=== PATIENT | female | born 1980 | race Caucasian/White ===

== ENCOUNTER → 2025-03-14 | Outpatient (CLI) | payer MEDICAID, SELFPAY ==
[2025-03-13 12:25] LABS: HCG Qualitative,Urine Negative
--- NOTE | 2025-03-14 09:30 | XR_ITS ---
Examination: CT abdomen, without intravenous contrast. CT pelvis, without intravenous contrast. CT abdomen, with intravenous contrast. CT pelvis, with intravenous contrast. 2-D sagittal coronal reconstructions. Date and time of exam:March 14, 2025 0939 hours, comparison December 21, 2009 INDICATIONS: History fallopian tube abscess generalized abdominal pain 4 months CTDI: vol (mGy) 19.2 DLP: (mGycm) 727 Technique: Multiple 3.0 axial images of the abdomen and pelvis without intravenous contrast, 3.0 mm slice thickness. Multiple 3.0 postcontrast images abdomen and pelvis also obtained, post intravenous injection 60 cc [id number] 2-D sagittal and coronal reconstructions. Low dose protocols were performed. One or more of the following dose reduction techniques were used; automated exposure control, adjustment of the mA and/or KV according to patient size, use of iterative reconstruction technique. Findings: No focal liver or splenic lesions excepting 5 mm liver cyst No gallstones No pancreatic mass No renal or ureteral calculi, no hydronephrosis Aorta normal size No pericecal inflammatory change Free fluid in the pelvis, anteverted uterus Partially cystic mass in the right adnexal region at least 4.4 cm Cystic mass in the anterior right pelvis 27 mm Intact osseous structures IMPRESSION: Moderate free fluid in the pelvis Partially cystic right adnexal region mass at least 4.4 cm 27 mm cystic mass in the anterior pelvis Recommend transabdominal transvaginal pelvic sonography follow-up
== END | disposition home or self-care (01) ==
PROVIDERS: Referring Provider Student in an Organized Health Care Education/Training Program; Visit Provider Student in an Organized Health Care Education/Training Program
DX: R19.09 Other intra-abdominal and pelvic swelling, mass and lump (principal); Z32.00 Encounter for pregnancy test, result unknown
CPT/HCPCS: 74178; 81025; A4649; Q9967

== ENCOUNTER 2025-06-16 08:05 | Outpatient (AMB) | payer MEDICAID, SELFPAY ==
--- NOTE | 2025-06-16 08:27 | AMB.GYNCLNOT ---
Vital Signs 06/16/25 08:50 Height 1.65 m Height Method Stated Weight 60.328 kg Weight Measurement Method Standing Scale BMI 22.1 BP 116/72 Blood Pressure Source Automatic Cuff Blood Pressure Location Left Upper Arm Position Sitting Respiration 14 Pulse 75 Pulse Source Monitor Temp 98.5 F Temp Source Oral Pulse Oximetry (%) 98 Oxygen Delivery Method Room Air Allergies/Home Meds Allergies & Medications Allergies No Known Allergies Allergy (Unknown, Uncoded 06/16/25 08:53) Medication Reconciliation ghpwzcp-zugnelhcgeamq-[id number] 250 mg-250 mg-65 mg tablet (Headache Relief ([id number]-[id number])) 1 tab PO Q6H PRN 07/06/23 [History Confirmed 06/16/25] carbamazepine 300 mg capsule,extended release [id number] 300 mg PO BID 07/06/23 [History Confirmed 06/16/25] ferrous fumarate 325 mg (106 mg iron) tablet 325 mg PO QDAY 07/06/23 [History Confirmed 06/16/25] Intake Visit Data Collection New Patient or Established: Established Patient (seen at [facility] within 3 years) Reason for Visit:: REFERRAL/ OVARIAN CYST Seen by Clinical Staff ONLY (RN/MA): No Poultry Farm 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 Required: No Do You Feel Safe at Home: Yes Authorities Contacted: N/A PCP or OBGYN visit in last 3 months: Yes Hx Now: Yes Are you currently on any form of Control: Yes Last menstrual period: 01/29/25 Pain Present Currently: Yes Pain Location: Abdomen (LOWER) Pain Scale Used: Colindres-Joseph/Numerical Pain scale:: 1 Smoking Status Smoking Status: Never smoker Immunizations Flu Vaccine in the Last 12 Months: Yes Flu Vaccine Exclusion Criteria: Already 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 1. Little interest or pleasure in doing things: not at all 2. Feeling down, depressed, or hopeless: not at all Total score: 0 PHQ-9 3. Trouble falling or staying asleep, or sleeping too much: Not at all 4. Feeling tired or having little energy: Not at all 5. Poor appetite or overeating: Not at all 6. Feeling bad about yourself - or that you are a failure or have let yourself or your family down: Not at all 7. Trouble concentrating on things, such as reading the newspaper or watching television: Not at all 8. Moving or speaking so slowly that other people could have noticed? - Or the opposite - being so fidgety or restless that you have been moving around a lot more than usual: not at all 9. Thoughts that you would be better off or of hurting yourself in some way: Not at all Total score: 0 Source: Developed by Drs. Enrique Arenas, Amira Peace, Socrates Bernal and colleagues, with an educational burt from [employer]. Depression screen completed yes Social History Living Situation History Marital Status: Lives With: Family Housing: House Tobacco History Smoking Status: Never smoker Second Hand Smoke Exposure: No Alcohol History Alcohol Intake: Never Domestic Abuse History Do You Feel Safe at Home: Yes History of Present Illness HPI Narrative History of tubo-ovarian abscess and right lower quadrant abscess, current left-sided pain where ovary was removed Patient is a 44-year-old female with a history of seizures presenting with complaints related to recurrent abdominal pain and pelvic infections. She has experienced a 20-pound weight loss since August. The patient's symptoms began in August with severe abdominal pain, possibly diverticulitis, lasting 5-8 days and causing her to miss 4 days of work. In November, she experienced another attack that led to an emergency room visit where she was diagnosed with burst appendicitis and treated with IV antibiotics and a drain. The infection was described as small and was subsequently treated with oral antibiotics. In January, she had another episode of severe pain that brought her to the emergency room. At that time, her appendix was found to be intact but there was inflammation of organs and infection detected in her female organs. Dr. Castro advised longer IV antibiotics and suggested she seek care in [place] for better treatment. The patient was seen at another facility for a tubo-ovarian abscess and was admitted to [facility] for a right lower quadrant abscess. She complained of receiving no gynecologic consultation during her hospitalization. Currently, she reports no signs of infection but experiences some pain in her left side where her ovary was removed. She had a seizure in [place] and spent the night in the emergency room at [facility]. Medical History: - History of seizures - Diverticulosis diagnosed October 05 via colonoscopy - Precancerous polyps removed October 05 - Emergency room visit in November for burst appendicitis, treated with IV antibiotics and drain placement - Emergency room visit in January for pelvic inflammatory process - Admission to [facility] for right lower quadrant abscess - Recent seizure episode in [place] requiring overnight emergency room observation Surgical History: - Left oophorectomy Obstetric History: - History of vaginal deliveries Social History: - Currently employed, has missed work due to medical issues - Encouraged to work if possible, considering FMLA for intermittent leave Exam General General Appearance: alert, in no apparent distress and healthy appearing Head Head exam: atraumatic Neck Neck exam: Present normal inspection and trachea midline Chest Chest inspection: Present normal inspection and symmetric chest wall rise External exam: Present normal external exam; Absent tenderness Neuro Neurological exam: Present oriented X3 Psych Psychiatric exam: Present normal affect and normal mood Office Procedures [facility] Clinic LOC & Office Proc's Nursing/Assessment Patient Status: Established Patient OB Clinic Nursing Assessment: Medication Reconciliation, Update PMH in EMR and Vital Signs OB Clinic Coordination of Care: Complex Care and Chronic Disease 1-5, Consent,records obtained, informed consent, Education Simp Pt/Fam, Lab and Imaging orders, Results/Orders obtained and Staff clarify orders Established Patient Charge Established Patient Point Assignment: 105 Established Patient Point Charge: EP Level 3 (80-115) Assessment & Plan Diagnosis / Problem List (1) Salpingitis and oophoritis, unspecified: Status: Acute (2) Diverticulosis of intestine, part unspecified, without perforation or abscess without bleeding: Status: Acute (3) Abnormal weight loss: Status: Acute (4) Epilepsy, unspecified, not intractable, without status epilepticus: Status: Acute Plan Tubo-ovarian abscess Assessment: Patient has history of recurrent severe abdominal pain episodes beginning in August with initial concern for diverticulitis. Subsequent episodes in November and January led to diagnoses of burst appendicitis and tubo-ovarian abscess respectively. March 14 CT scan demonstrated moderate free fluid, partially cystic right adnexal mass measuring 4.4 cm in anterior pelvis. February 02 admission notes documented right hydrosalpinx, tubo-ovarian abscess, secondary inflammatory changes in pelvis, colitis, and sigmoid colon involvement. Patient currently has no signs of active infection but reports some pain in left side where ovary was removed. Latest imaging continues to show inflammation and cystic mass requiring surgical intervention. Plan: - Simple ultrasound to check ovaries - Possible CT scan if needed - Referral to Dr. Garcia at [facility] for surgical intervention Diverticulitis Assessment: Patient experienced severe abdominal pain in August lasting 5-8 days, missing 4 days of work, with possible diverticulitis. CT scan during recent hospitalization at [facility] for right lower quadrant abscess confirmed diverticulitis. Colonoscopy on October [address] Peterson in [place] removed precancerous polyps and diagnosed diverticulosis. Plan: - Manager Motor ordering follow-up tests Weight loss Assessment: Patient has lost 20 pounds since August in the setting of recurrent abdominal pain episodes and gastrointestinal issues. Seizure disorder Assessment: Patient has history of seizures and recently had a seizure in [place], spending the night in the ER at [facility].
[2025-06-16 08:50] VITALS: BP 116/72; PULSE 75; RESP 14; TEMP 36.9; O2SAT 98; BMI 22.1
== END 2025-06-16 09:35 | disposition home or self-care (01) ==
LOC: HODSOBC 08:05
PROVIDERS: Supervising Provider Obstetrics & Gynecology; Visit Provider Obstetrics & Gynecology
DX: N70.03 Acute salpingitis and oophoritis (principal); G40.909 Epilepsy, unspecified, not intractable, without status epilepticus; K57.90 Diverticulosis of intestine, part unspecified, without perforation or abscess without bleeding; R63.4 Abnormal weight loss; Z68.22 Body mass index [BMI] 22.0-22.9, adult; Z87.19 Personal history of other diseases of the digestive system; Z87.42 Personal history of other diseases of the female genital tract; Z90.721 Acquired absence of ovaries, unilateral
CPT/HCPCS: 99213; G0463